=== PATIENT | male | born 1970 | race Caucasian/White ===

== ENCOUNTER → 2020-09-17 | Outpatient (CLI) | payer MEDICAID ==
[~2020-09-17] MED LIST: LIPITOR40 MG PO; TOPROL XL25 MG PO
== END | disposition home or self-care (01) ==
LOC: US 15:28
PROVIDERS: ATTEND Internal Medicine
DX: R22.2 Localized swelling, mass and lump, trunk (principal)

== ENCOUNTER → 2020-10-29 | Outpatient (CLI) | payer MEDICAID | END | disposition home or self-care (01) | LOC: COVID19 10:34 | PROVIDERS: ATTEND Surgery | DX: Z01.818 Encounter for other preprocedural examination (principal); Z20.828 Contact with and (suspected) exposure to other viral communicable diseases ==

== ENCOUNTER → 2020-11-15 | Outpatient (CLI) | payer OTHER | END | disposition home or self-care (01) | LOC: COVID19 12:32 | PROVIDERS: ATTEND Surgery | DX: Z01.812 Encounter for preprocedural laboratory examination (principal); Z20.828 Contact with and (suspected) exposure to other viral communicable diseases ==

== ENCOUNTER → 2020-11-22 | Outpatient (CLI) | payer OTHER, MEDICAID ==
[~2020-11-22] MED LIST changes: +COLACE100 MG PO; +HYDROCODON-ACE1 EACH PO; +ZOFRAN4 MG PO
== END | disposition home or self-care (01) ==
LOC: COVID19 09:01
PROVIDERS: ATTEND Surgery
DX: Z01.812 Encounter for preprocedural laboratory examination (principal); Z20.822 Contact with and (suspected) exposure to COVID-19

== ENCOUNTER → 2020-11-27 | Day surgery (SDC) | payer OTHER ==
[~2020-11-27] VITALS: Ht 167.6 cm; Wt 72.6 kg
[2020-11-27 07:30] VITALS: BP 153/91
[2020-11-27 08:30] VITALS: BP 107/52
[2020-11-27 08:45] VITALS: BP 105/61
[2020-11-27 09:00] VITALS: BP 145/89
== END ==
LOC: SDC 10-29 09:30
PROVIDERS: ATTEND Surgery
DX: D17.1 Benign lipomatous neoplasm of skin and subcutaneous tissue of trunk (principal); F17.210 Nicotine dependence, cigarettes, uncomplicated; I10 Essential (primary) hypertension; I25.2 Old myocardial infarction; I25.10 Atherosclerotic heart disease of native coronary artery without angina pectoris; Z95.5 Presence of coronary angioplasty implant and graft; Z79.899 Other long term (current) drug therapy

== ENCOUNTER → 2021-03-25 | Outpatient (CLI) | payer OTHER | END | disposition home or self-care (01) | LOC: US 12:55 | PROVIDERS: ATTEND Internal Medicine | DX: I70.203 Unspecified atherosclerosis of native arteries of extremities, bilateral legs (principal) ==

== ENCOUNTER → 2023-02-14 | Outpatient (CLI) | payer MEDICAID ==
[2023-02-14 12:06] LABS: BASO % 0.1 % (0.0-1.0); EOS % 0.4 % (1.0-4.0); HEMATOCRIT 46.9 % (42.0-52.0); LYMPH # 2.5 10*3/uL (1.3-4.4); LYMPH % 22.3 % (27.0-41.0); MEAN CELL VOLUME 90.4 fl (80.0-94.0); MEAN CORPUSCULAR HGB 29.9 pg (27.0-31.0); MEAN PLATELET VOLUME 9.3 fl (9.6-12.3); MONO # 0.5 10*3/uL (0.1-1.0); MONO % 4.1 % (3.0-9.0); NEUT # 8.2 10*3/uL (2.3-7.9); NEUT % 72.8 % (47.0-73.0); PLATELET COUNT AUTOMATED 309 10*3/uL (130-400); RED BLOOD COUNT 5.19 10*6/uL (4.50-5.90); RED CELL DISTRI WIDTH 13.2 % (0-14.5); RETICULOCYTE % 1.19 % (0.50-2.50); WHITE BLOOD COUNT 11.3 10*3/uL (4.8-10.8)
[2023-02-14 12:12] LABS: BILIRUBIN Negative (Negative); BLOOD Negative (Negative); CLARITY Clear (Clear); COLOR Yellow (Yellow); GLUCOSE Negative (Negative); KETONE Negative (Negative); LEUKO ESTERASE Negative (Negative); NITRITE Negative (Negative); PH 6.5 (4.5-8.0); UROBILINOGEN 0.2 E.U./dl (0.0-1.0)
[2023-02-14 12:40] LABS: ALKALINE PHOSPHATASE 94 U/L (46-116); BUN 8 mg/dl (9-23); CHLORIDE 106 mmol/L (98-107); CHOLESTEROL 266 mg/dL (<200); GAMMA GLUTAMYL TRANSPEPTIDASE 46 U/L (0-73); LDL CHOLESTEROL 196 mg/dL (9-159); POTASSIUM 3.8 mmol/L (3.4-5.1); SGPT/ALT 33 U/L (10-49); T3 UPTAKE 20.7 % (22.4-36.7); THYROXINE (T4) TOTAL 8.9 ug/dl (4.5-10.9); TOTAL PROTEIN 7.3 gm/dL (6.0-8.0); TRIGLYCERIDES 157 mg/dl (<150); URIC ACID 5.5 mg/dL (3.7-9.2)
[2023-02-14 12:50] LABS: RBC 0-2 rbc/hpf (0-2); WBC 0-2 wbc/hpf (0-5)
[2023-02-14 13:19] LABS: VITAMIN D, 25-HYDROXY 19.4 ng/mL (30-100)
[2023-02-15 14:07] LABS: ANTI-DSDNA ANTIBODIES <1 IU/mL (0-9)
== END | disposition home or self-care (01) ==
LOC: LAB 11:37
PROVIDERS: ATTEND Family Medicine
DX: E78.5 Hyperlipidemia, unspecified (principal); R06.02 Shortness of breath; R74.8 Abnormal levels of other serum enzymes; E55.9 Vitamin D deficiency, unspecified; R53.83 Other fatigue; R79.89 Other specified abnormal findings of blood chemistry

== ENCOUNTER → 2023-08-24 | Outpatient (CLI) | payer OTHER | END | disposition home or self-care (01) | LOC: CARD 07:04 | PROVIDERS: ATTEND Internal Medicine Cardiovascular Disease | DX: I25.119 Atherosclerotic heart disease of native coronary artery with unspecified angina pectoris (principal); I51.7 Cardiomegaly ==

== ENCOUNTER → 2024-09-25 | Outpatient (CLI) | payer OTHER | END | disposition home or self-care (01) | LOC: CARD 03:58 | PROVIDERS: ATTEND Internal Medicine Cardiovascular Disease | DX: I25.119 Atherosclerotic heart disease of native coronary artery with unspecified angina pectoris (principal); I51.7 Cardiomegaly ==

== ENCOUNTER 2024-10-19 06:40 | Emergency (ER) | payer OTHER ==
[2024-10-19] MEDS ORDERED: Tdap Vaccine 0.5 ML SYR (Adult Vaccine) IM ONE (06:50)
== END 2024-10-19 09:13 | disposition home or self-care (01) ==
LOC: ED 06:40
DX: S00.01XA Abrasion of scalp, initial encounter (principal); R91.1 Solitary pulmonary nodule; I10 Essential (primary) hypertension; I25.10 Atherosclerotic heart disease of native coronary artery without angina pectoris; I25.2 Old myocardial infarction; Z90.89 Acquired absence of other organs; Z95.5 Presence of coronary angioplasty implant and graft; Z87.891 Personal history of nicotine dependence; V89.2XXA Person injured in unspecified motor-vehicle accident, traffic, initial encounter; Y93.89 Activity, other specified; Y92.410 Unspecified street and highway as the place of occurrence of the external cause; Y99.8 Other external cause status

== ENCOUNTER 2025-03-29 17:16 | Emergency (ER) | payer OTHER ==
[~2025-03-29] VITALS: Wt 68.0 kg
== END 2025-03-29 18:35 ==
LOC: ED 17:16
DX: I46.9 Cardiac arrest, cause unspecified (principal); I25.2 Old myocardial infarction; Z79.899 Other long term (current) drug therapy; Z95.5 Presence of coronary angioplasty implant and graft